=== PATIENT | female | born 1970 | race Caucasian/White ===

== ENCOUNTER 2017-07-10 16:53 | Emergency (ER) | payer MEDICARE, MEDICAID ==
[~2017-07-10] VITALS: Ht 149.9 cm; Wt 47.7 kg
[~2017-07-10 16:53] MED LIST: ACET5SOL2 PO; CYCL-394 PO; DIAZ5TAB PO; HYDR-565 PO; IBUP-2284 PO; MELO-82 PO; NAPR-56 PO; claritan
[2017-07-10 17:53] LABS: BASOPHILS % (AUTO) 0.4 % (0-1); EOSINOPHILS # (AUTO) 0.1 X10'3 (0-0.9); HEMATOCRIT 38.7 % (35.0-45.0); HEMOGLOBIN 13.4 g/dl (12.0-16.0); LYMPHOCYTES # (AUTO) 1.2 X10'3 (1.1-4.8); LYMPHOCYTES % (AUTO) 32.3 % (21-51); MEAN CORPUSCULAR HEMOGLOBIN 30.7 PG (27.0-31.0); MEAN CORPUSCULAR HGB CONC 34.7 % (33.0-36.5); MEAN CORPUSCULAR VOLUME 88.6 FL (78-98); MEAN PLATELET VOLUME 7.7 FL (7.4-10.4); MONOCYTES # (AUTO) 0.4 X10'3 (0-0.9); MONOCYTES % (AUTO) 10.4 % (2-12); NEUTROPHILS % (AUTO) 54.9 % (42-75); PLATELET COUNT 225 X10'3 (140-440); RED BLOOD COUNT 4.37 X10'6 (4.20-5.60); RED CELL DISTRIBUTION WIDTH 12.6 % (11.5-14.5); WHITE BLOOD COUNT 3.7 X10'3 (4.5-11.0)
[2017-07-10 18:02] LABS: INR 0.9 INR; PARTIAL THROMBOPLASTIN TIME 26 SECONDS (22-32); PROTHROMBIN TIME 9.8 SECONDS (9.0-12.0)
[2017-07-10 18:10] LABS: ALANINE AMINOTRANSFERASE 35 U/L (12-78); ALBUMIN/GLOBULIN RATIO 1.1 (1.1-1.5); ALKALINE PHOSPHATASE 49 IU/L (46-116); ANION GAP 10 (8-16); ASPARTATE AMINO TRANSFERASE 22 U/L (10-37); BILIRUBIN,TOTAL 0.4 MG/DL (0.1-1.0); BLOOD UREA NITROGEN 19 MG/DL (7-18); BUN/CREATININE RATIO 24.7 (6.6-38.0); CALCIUM 8.8 MG/DL (8.5-10.1); CHLORIDE 104 MMOL/L (99-107); CREATININE 0.77 MG/DL (0.40-0.90); GLUCOSE 81 MG/DL (70-104); POTASSIUM 4.1 MMOL/L (3.5-5.1); SODIUM 139 MMOL/L (135-145); TOTAL CARBON DIOXIDE 25.3 MMOL/L (24-32); TOTAL PROTEIN 7.5 G/DL (6.4-8.2); TROPONIN I < 0.04 NG/ML (0.0-0.05); eGFR 81 ML/MIN
[2017-07-10] MEDS ORDERED: ketorolac trometh inj. 60 MG/2 ML VIAL IM ONE (19:05)
[2017-07-10] MEDS ORDERED: triamcinolone acetonide 40mg/ml inj IM ONE (19:05)
[2017-07-10 19:21] VITALS: BP 113/93
== END 2017-07-10 19:22 | disposition home or self-care (01) ==
LOC: ER 16:55
DX: M54.10 Radiculopathy, site unspecified (principal); M54.9 Dorsalgia, unspecified; G89.29 Other chronic pain; F17.200 Nicotine dependence, unspecified, uncomplicated; F12.10 Cannabis abuse, uncomplicated; F15.10 Other stimulant abuse, uncomplicated; Z56.0 Unemployment, unspecified; Z79.899 Other long term (current) drug therapy
CPT/HCPCS: 36415; 70450; 71045; 72100; 80053; 84484; 85025; 85610; 85730; 93005; 96372; 99285; J1885; J3301

== ENCOUNTER 2018-01-16 05:36 | Inpatient (IN) | payer MEDICARE, MEDICAID ==
[~2018-01-16] VITALS: Ht 149.9 cm; Wt 44.1 kg
[2018-01-16] VITALS (17 sets, daily range): BP systolic 78–118; BP diastolic 42–68
[~2018-01-16 05:36] MED LIST changes: -IBUP-2284 PO; +IBUP100O20 PO
[2018-01-16] MEDS ORDERED: HYDROcodone/acetaminophen 5mg/325mg tablet PO ONE (05:50)
[2018-01-16] MEDS ORDERED: normal saline 1000ML IV soln IV ONE (06:05)
[2018-01-16] MEDS ORDERED: fentaNYL/PF 50MCG/1 ML 2ML syringe IV ONE (06:05)
[2018-01-16 06:13] LABS: BASOPHILS % (AUTO) 0 % (0-1); EOSINOPHILS % (AUTO) 0 % (0-6); HEMATOCRIT 34.8 % (35.0-45.0); HEMOGLOBIN 11.9 g/dl (12.0-16.0); LYMPHOCYTES # (AUTO) 0.4 X10'3 (1.1-4.8); LYMPHOCYTES % (AUTO) 4.2 % (21-51); MEAN CORPUSCULAR HEMOGLOBIN 30.6 PG (27.0-31.0); MEAN CORPUSCULAR HGB CONC 34.4 % (33.0-36.5); MEAN CORPUSCULAR VOLUME 88.9 FL (78-98); MEAN PLATELET VOLUME 8.4 FL (7.4-10.4); MONOCYTES # (AUTO) 1.4 X10'3 (0-0.9); NEUTROPHILS # (AUTO) 8.1 X10'3 (1.8-7.7); NEUTROPHILS % (AUTO) 81.8 % (42-75); PLATELET COUNT 163 X10'3 (140-440); RED BLOOD COUNT 3.91 X10'6 (4.20-5.60); RED CELL DISTRIBUTION WIDTH 13.4 % (11.5-14.5); WHITE BLOOD COUNT 9.9 X10'3 (4.5-11.0)
[2018-01-16] MEDS ORDERED: ondansetron/PF 4mg/2ml inj IV ONE (06:20)
[2018-01-16 06:24] LABS: INR 1.1 INR; PARTIAL THROMBOPLASTIN TIME 32 SECONDS (22-32); PROTHROMBIN TIME 10.9 SECONDS (9.0-12.0)
[2018-01-16 06:37] LABS: ALANINE AMINOTRANSFERASE 20 U/L (12-78); ALBUMIN/GLOBULIN RATIO 0.8 (1.1-1.5); ALKALINE PHOSPHATASE 70 IU/L (46-116); ANION GAP 10 (8-16); ASPARTATE AMINO TRANSFERASE 14 U/L (10-37); BILIRUBIN,TOTAL 0.3 MG/DL (0.1-1.0); BLOOD UREA NITROGEN 22 MG/DL (7-18); BUN/CREATININE RATIO 19.3 (6.6-38.0); CALCIUM 9.7 MG/DL (8.5-10.1); CHLORIDE 99 MMOL/L (99-107); CREATININE 1.14 MG/DL (0.40-0.90); GLUCOSE 111 MG/DL (70-104); LIPASE 104 U/L (73-393); POTASSIUM 4.3 MMOL/L (3.5-5.1); SODIUM 132 MMOL/L (135-145); TOTAL CARBON DIOXIDE 22.9 MMOL/L (24-32); eGFR 52 ML/MIN
[2018-01-16 06:55] LABS: CLARITY,URINE CLEAR (Clear); COLOR,URINE YELLOW (Yellow); GLUCOSE, URINE NEGATIVE (Neg); KETONES,URINE NEGATIVE (Neg); LEUKOCYTE ESTERASE ,URINE MODERATE (Neg); NITRITES, URINE NEGATIVE (Neg); OCCULT BLOOD,URINE MODERATE (Neg); PROTEIN,URINE 100 mg/dl (Neg); URINE HCG NEGATIVE (NEG); UROBILINOGEN,URINE 0.2 E.U/dL (0.2-1.0)
[2018-01-16 06:56] LABS: UA COLLECTION TYPE CLN CATCH MIDSTREAM
[2018-01-16 07:02] LABS: BACTERIA,URINE FEW /HPF (Neg); MUCUS STRANDS NONE SEEN /LPF (Neg); SQUAMOUS EPITHELIAL CELL,UR NONE SEEN /LPF (FEW); WBC,URINE 50-100 /HPF (0-4)
[2018-01-16 07:06] LABS: URINE AMPHETAMINE SCREEN POSITIVE (Neg); URINE BARBITUATE SCREEN NEGATIVE (Neg); URINE BENZODIAZEPINES SCREEN NEGATIVE (Neg); URINE CANNABINOID SCREEN POSITIVE (Neg); URINE COCAINE SCREEN NEGATIVE (Neg); URINE METHADONE SCREEN NEGATIVE (Neg); URINE OPIATE SCREEN NEGATIVE (Neg); URINE PHENCYCLIDINE SCREEN NEGATIVE (Neg)
[2018-01-16] MEDS ORDERED: CefTRIAXone 2gm/D5W 50ml 50 ML IV ONE (07:55)
[2018-01-16] MEDS ORDERED: morphine 4 MG/ML inj SYRINge IV ONE (08:30)
[2018-01-16] MEDS ORDERED: ketorolac tromethamine 15mg/ml inj. IV ONE (08:35)
[2018-01-16] MEDS ORDERED: CIPR-259 PO (08:41)
[2018-01-16] MEDS ORDERED: HYDROcodone/acetaminophen 5mg/325mg tablet PO PRN (09:30)
[2018-01-16] MEDS ORDERED: acetaminophen 325mg tablet PO PRN (09:30)
[2018-01-16] MEDS ORDERED: magnesium Cl slow-release 64mg tablet PO PRN (09:30)
[2018-01-16] MEDS ORDERED: ondansetron/PF 4mg/2ml inj IV PRN ×2 (09:30→19:05)
[2018-01-16] MEDS ORDERED: potassium Cl 20 mEq SR tablet PO PRN ×2 (09:30)
[2018-01-16] MEDS ORDERED: magnesium 1gm/100ml D5W IVPB 100 ML IV PRN (09:30)
[2018-01-16] MEDS ORDERED: morphine 2 MG/ML inj. syringe IV PRN (09:30)
[2018-01-16] MEDS ORDERED: mag hydrox/Alum hydrox/simeth 30ml oral suspension PO PRN (09:30)
[2018-01-16] MEDS ORDERED: magnesium 4gm in 100ml NS 100 ML IV PRN (09:30)
[2018-01-16] MEDS ORDERED: docusate sod 100mg capsule PO PRN (09:30)
[2018-01-16] MEDS ORDERED: potassium Cl 40MEQ/NS 500ml 500 ML IV PRN ×2 (09:30)
[2018-01-16] MEDS: pantoprazole 40mg Tablet.DR PO SCH (09:50)
[2018-01-16] MEDS ORDERED: NO HOME MEDS (10:25)
[2018-01-16] MEDS: normal saline 1000ml 1,000 ML IV SCH ×3 (11:32→21:01)
[2018-01-16] MEDS ORDERED: iohexol 300 MG/1 ML 50ml polymer ONE (18:37)
[2018-01-16] MEDS ORDERED: sevoflurane 250ml liquid IH ONE (18:55)
[2018-01-16] MEDS ORDERED: dexamethasone sod phosphate 10mg/ml inj ONE (18:55)
[2018-01-16] MEDS ORDERED: propofol 10mg/ml 20ml vial IV ONE (18:55)
[2018-01-16] MEDS ORDERED: ondansetron/PF 4mg/2ml inj ONE (18:55)
[2018-01-16] MEDS ORDERED: ringers solution, lacted 1,000 ML IV SCH (19:01)
[2018-01-16] MEDS ORDERED: midazolam 2 mg/2 ml injection ONE (19:04)
[2018-01-16] MEDS ORDERED: fentaNYL/PF 50MCG/1 ML 2ML syringe ONE (19:04)
[2018-01-16] MEDS ORDERED: morphine 4 MG/ML inj SYRINge IV PRN ×2 (19:05)
[2018-01-16] MEDS ORDERED: labetalol 20mg/4ml (5mg/ml) syringe IV PRN (19:05)
[2018-01-16] MEDS ORDERED: fentaNYL/PF 50MCG/1 ML 2ML syringe IV PRN ×2 (19:05)
[2018-01-16] MEDS ORDERED: hydrALAZINE 20mg/ml inj. IV PRN (19:05)
[2018-01-16] MEDS ORDERED: ceFAZolin 1000mg inj ONE (19:14)
[2018-01-16] MEDS ORDERED: meperidine/PF 50mg/ml syringe ONE (19:30)
[2018-01-16] MEDS ORDERED: albuterol 2.5 MG/3 ML nebule NEB ONE (20:30)
[2018-01-16] MEDS ORDERED: temazepam 15mg capsule PO PRN (21:00)
[2018-01-16] MEDS: heparin, porcine 5000 units/ml vial SQ SCH (22:07)
[2018-01-17] VITALS: BP 101/52
[2018-01-17 01:00] VITALS: BP 99/62
[2018-01-17] MEDS: normal saline 1000ml 1,000 ML IV SCH ×3 (04:38→22:37)
[2018-01-17 05:21] LABS: BASOPHILS % (AUTO) 0.1 % (0-1); EOSINOPHILS % (AUTO) 0.1 % (0-6); HEMATOCRIT 32.7 % (35.0-45.0); HEMOGLOBIN 11.3 g/dl (12.0-16.0); LYMPHOCYTES # (AUTO) 0.2 X10'3 (1.1-4.8); LYMPHOCYTES % (AUTO) 14.3 % (21-51); MEAN CORPUSCULAR HEMOGLOBIN 30.5 PG (27.0-31.0); MEAN CORPUSCULAR HGB CONC 34.4 % (33.0-36.5); MEAN CORPUSCULAR VOLUME 88.5 FL (78-98); MEAN PLATELET VOLUME 9.3 FL (7.4-10.4); MONOCYTES # (AUTO) 0.3 X10'3 (0-0.9); MONOCYTES % (AUTO) 16.4 % (2-12); NEUTROPHILS # (AUTO) 1.2 X10'3 (1.8-7.7); NEUTROPHILS % (AUTO) 69.1 % (42-75); PLATELET COUNT 115 X10'3 (140-440); RED BLOOD COUNT 3.69 X10'6 (4.20-5.60); RED CELL DISTRIBUTION WIDTH 13.3 % (11.5-14.5); WHITE BLOOD COUNT 1.7 X10'3 (4.5-11.0)
[2018-01-17 05:29] LABS: ALANINE AMINOTRANSFERASE 14 U/L (12-78); ALBUMIN 1.9 G/DL (3.4-5.0); ALBUMIN/GLOBULIN RATIO 0.5 (1.1-1.5); ALKALINE PHOSPHATASE 57 IU/L (46-116); ANION GAP 9 (8-16); ASPARTATE AMINO TRANSFERASE 9 U/L (10-37); BILIRUBIN,TOTAL 0.2 MG/DL (0.1-1.0); BLOOD UREA NITROGEN 18 MG/DL (7-18); BUN/CREATININE RATIO 22.2 (6.6-38.0); CALCIUM 7.5 MG/DL (8.5-10.1); CHLORIDE 107 MMOL/L (99-107); CREATININE 0.81 MG/DL (0.40-0.90); GLUCOSE 120 MG/DL (70-104); MAGNESIUM 1.7 MG/DL (1.5-2.4); POTASSIUM 3.7 MMOL/L (3.5-5.1); SODIUM 135 MMOL/L (135-145); TOTAL CARBON DIOXIDE 18.7 MMOL/L (24-32); TOTAL PROTEIN 5.6 G/DL (6.4-8.2); eGFR 76 ML/MIN
[2018-01-17 07:24] LABS: PLATELET ESTIMATE DECREASED; TOTAL CELLS COUNTED 100
[2018-01-17 08:00] VITALS: BP 93/62
[2018-01-17] MEDS: K and/or MAG REPLACEMENT MC SCH (08:00)
[2018-01-17] MEDS: HYDROcodone/acetaminophen 10/325mg tab PO PRN ×3 (08:18→19:17)
[2018-01-17] MEDS: pantoprazole 40mg Tablet.DR PO SCH (08:40)
[2018-01-17] MEDS: CefTRIAXone 2gm/D5W 50ml 50 ML IV SCH (08:41)
[2018-01-17] MEDS: heparin, porcine 5000 units/ml vial SQ SCH ×2 (08:42→19:19)
[2018-01-17 11:00] VITALS: BP 96/64
[2018-01-17] MEDS ORDERED: levoFLOXACIN-Levaquin 750MG/D5 150 ML IV STA (13:08)
[2018-01-17 18:00] VITALS: BP 111/71
[2018-01-17] MEDS: lactobacillus rhamnosus 10,000 MMU CELLS/CAPSULE PO SCH (19:15)
[2018-01-18] VITALS: BP 115/72
[2018-01-18] MEDS: HYDROcodone/acetaminophen 10/325mg tab PO PRN (00:46)
[2018-01-18 05:16] LABS: HEMATOCRIT 30.6 % (35.0-45.0); HEMOGLOBIN 10.4 g/dl (12.0-16.0); MEAN CORPUSCULAR VOLUME 88.1 FL (78-98); MEAN PLATELET VOLUME 8.4 FL (7.4-10.4); PLATELET COUNT 133 X10'3 (140-440); RED BLOOD COUNT 3.47 X10'6 (4.20-5.60); RED CELL DISTRIBUTION WIDTH 13.4 % (11.5-14.5); WHITE BLOOD COUNT 1.6 X10'3 (4.5-11.0)
[2018-01-18 05:30] LABS: ALANINE AMINOTRANSFERASE 11 U/L (12-78); ALBUMIN 1.9 G/DL (3.4-5.0); ALBUMIN/GLOBULIN RATIO 0.5 (1.1-1.5); ALKALINE PHOSPHATASE 47 IU/L (46-116); ANION GAP 9 (8-16); ASPARTATE AMINO TRANSFERASE 8 U/L (10-37); BILIRUBIN,TOTAL 0.1 MG/DL (0.1-1.0); BLOOD UREA NITROGEN 14 MG/DL (7-18); BUN/CREATININE RATIO 15.6 (6.6-38.0); CALCIUM 7.7 MG/DL (8.5-10.1); CHLORIDE 108 MMOL/L (99-107); GLUCOSE 95 MG/DL (70-104); MAGNESIUM 1.8 MG/DL (1.5-2.4); POTASSIUM 3.6 MMOL/L (3.5-5.1); SODIUM 138 MMOL/L (135-145); TOTAL CARBON DIOXIDE 21.2 MMOL/L (24-32); TOTAL PROTEIN 5.4 G/DL (6.4-8.2); eGFR 68 ML/MIN
[2018-01-18] MEDS: normal saline 1000ml 1,000 ML IV SCH (05:37)
[2018-01-18 07:10] VITALS: BP 117/61
[2018-01-18 07:24] LABS: TOTAL CELLS COUNTED 100
[2018-01-18 07:29] LABS: PLATELET ESTIMATE DECREASED; POLYCHROMASIA FEW
[2018-01-18 07:31] LABS: BURR CELLS 1+; TOXIC GRANULATION 1+
[2018-01-18] MEDS: K and/or MAG REPLACEMENT MC SCH (08:00)
[2018-01-18] MEDS: pantoprazole 40mg Tablet.DR PO SCH (09:32)
[2018-01-18] MEDS: CefTRIAXone 2gm/D5W 50ml 50 ML IV SCH (09:34)
[2018-01-18] MEDS: acetaminophen 325mg tablet PO PRN ×2 (09:34→21:35)
[2018-01-18] MEDS: lactobacillus rhamnosus 10,000 MMU CELLS/CAPSULE PO SCH ×2 (09:34→21:33)
[2018-01-18] MEDS: heparin, porcine 5000 units/ml vial SQ SCH ×2 (09:38→21:36)
[2018-01-18] MEDS: levoFLOXACIN-Levaquin 750MG/D5 150 ML IV SCH (10:46)
[2018-01-18 11:45] VITALS: BP 101/61
[2018-01-18] MEDS ORDERED: magnesium hydroxide 30ml (MOM) UD suspension PO PRN (16:50)
[2018-01-18 18:00] VITALS: BP 100/53
[2018-01-18] MEDS: busPIRone 5mg tablet PO SCH (21:33)
[2018-01-18] MEDS: docusate sod 100mg capsule PO SCH (21:33)
[2018-01-18] MEDS: Melatonin 3mg tablet PO SCH (21:34)
[2018-01-19] VITALS: BP 94/47
[2018-01-19 05:53] LABS: HEMATOCRIT 31.2 % (35.0-45.0); HEMOGLOBIN 10.7 g/dl (12.0-16.0); MEAN CORPUSCULAR HEMOGLOBIN 30.4 PG (27.0-31.0); MEAN CORPUSCULAR HGB CONC 34.4 % (33.0-36.5); MEAN CORPUSCULAR VOLUME 88.5 FL (78-98); MEAN PLATELET VOLUME 8.6 FL (7.4-10.4); PLATELET COUNT 146 X10'3 (140-440); RED BLOOD COUNT 3.52 X10'6 (4.20-5.60); RED CELL DISTRIBUTION WIDTH 13.7 % (11.5-14.5); WHITE BLOOD COUNT 1.9 X10'3 (4.5-11.0)
[2018-01-19 06:00] LABS: ALANINE AMINOTRANSFERASE 14 U/L (12-78); ALBUMIN/GLOBULIN RATIO 0.5 (1.1-1.5); ALKALINE PHOSPHATASE 51 IU/L (46-116); ANION GAP 8 (8-16); ASPARTATE AMINO TRANSFERASE 15 U/L (10-37); BILIRUBIN,TOTAL 0.1 MG/DL (0.1-1.0); BLOOD UREA NITROGEN 8 MG/DL (7-18); CALCIUM 8.3 MG/DL (8.5-10.1); CHLORIDE 104 MMOL/L (99-107); CREATININE 0.73 MG/DL (0.40-0.90); GLUCOSE 123 MG/DL (70-104); MAGNESIUM 1.6 MG/DL (1.5-2.4); POTASSIUM 3.4 MMOL/L (3.5-5.1); SODIUM 136 MMOL/L (135-145); TOTAL PROTEIN 5.7 G/DL (6.4-8.2); eGFR 86 ML/MIN
[2018-01-19] MEDS: K and/or MAG REPLACEMENT MC SCH (08:00)
[2018-01-19 08:03] VITALS: BP 109/61
[2018-01-19 08:45] LABS: PLATELET ESTIMATE NORMAL; TOTAL CELLS COUNTED 100
[2018-01-19] MEDS: pantoprazole 40mg Tablet.DR PO SCH (09:49)
[2018-01-19] MEDS: lactobacillus rhamnosus 10,000 MMU CELLS/CAPSULE PO SCH ×2 (09:49→19:37)
[2018-01-19] MEDS: busPIRone 5mg tablet PO SCH ×3 (09:49→21:07)
[2018-01-19] MEDS: CefTRIAXone 2gm/D5W 50ml 50 ML IV SCH (09:49)
[2018-01-19] MEDS: heparin, porcine 5000 units/ml vial SQ SCH ×2 (09:50→19:37)
[2018-01-19] MEDS: docusate sod 100mg capsule PO SCH ×2 (09:50→19:37)
[2018-01-19] MEDS: levoFLOXACIN-Levaquin 750MG/D5 150 ML IV SCH (10:33)
[2018-01-19] MEDS ORDERED: magnesium 4gm in 100ml NS 100 ML IV PRN (10:40)
[2018-01-19] MEDS ORDERED: magnesium Cl slow-release 64mg tablet PO PRN (10:40)
[2018-01-19] MEDS ORDERED: potassium Cl 20 mEq SR tablet PO PRN (10:40)
[2018-01-19] MEDS ORDERED: potassium Cl 40MEQ/NS 500ml 500 ML IV PRN ×2 (10:40)
[2018-01-19] MEDS ORDERED: magnesium 1gm/100ml D5W IVPB 100 ML IV PRN (10:40)
[2018-01-19] MEDS: potassium Cl 20 mEq SR tablet PO PRN ×2 (11:12→19:37)
[2018-01-19] MEDS: nicotine 14mg patch - 24hr TD SCH (11:14)
[2018-01-19 11:52] VITALS: BP 101/54
[2018-01-19 18:00] VITALS: BP 99/63
[2018-01-19] MEDS: HYDROcodone/acetaminophen 10/325mg tab PO PRN (19:37)
[2018-01-19] MEDS: Melatonin 3mg tablet PO SCH (21:07)
[2018-01-20] VITALS: BP 111/59
[2018-01-20 05:17] LABS: HEMATOCRIT 31.5 % (35.0-45.0); HEMOGLOBIN 10.8 g/dl (12.0-16.0); MEAN CORPUSCULAR HEMOGLOBIN 30.2 PG (27.0-31.0); MEAN CORPUSCULAR HGB CONC 34.2 % (33.0-36.5); MEAN CORPUSCULAR VOLUME 88.3 FL (78-98); MEAN PLATELET VOLUME 8.6 FL (7.4-10.4); PLATELET COUNT 162 X10'3 (140-440); RED BLOOD COUNT 3.57 X10'6 (4.20-5.60); RED CELL DISTRIBUTION WIDTH 13.6 % (11.5-14.5)
[2018-01-20 05:38] LABS: ALANINE AMINOTRANSFERASE 56 U/L (12-78); ALBUMIN 2.1 G/DL (3.4-5.0); ALBUMIN/GLOBULIN RATIO 0.6 (1.1-1.5); ALKALINE PHOSPHATASE 57 IU/L (46-116); ANION GAP 7 (8-16); ASPARTATE AMINO TRANSFERASE 61 U/L (10-37); BILIRUBIN,TOTAL 0.1 MG/DL (0.1-1.0); BLOOD UREA NITROGEN 9 MG/DL (7-18); CALCIUM 8.2 MG/DL (8.5-10.1); CHLORIDE 104 MMOL/L (99-107); CREATININE 0.75 MG/DL (0.40-0.90); GLUCOSE 113 MG/DL (70-104); MAGNESIUM 1.7 MG/DL (1.5-2.4); SODIUM 137 MMOL/L (135-145); TOTAL CARBON DIOXIDE 25.7 MMOL/L (24-32); TOTAL PROTEIN 5.8 G/DL (6.4-8.2); eGFR 84 ML/MIN
[2018-01-20 06:28] LABS: TOTAL CELLS COUNTED 100
[2018-01-20 06:29] LABS: PLATELET ESTIMATE NORMAL
[2018-01-20 08:00] VITALS: BP 120/67
[2018-01-20] MEDS: K and/or MAG REPLACEMENT MC SCH (08:00)
[2018-01-20] MEDS: levoFLOXACIN-Levaquin 750MG/D5 150 ML IV SCH (09:13)
[2018-01-20] MEDS: CefTRIAXone 2gm/D5W 50ml 50 ML IV SCH (09:13)
[2018-01-20] MEDS: pantoprazole 40mg Tablet.DR PO SCH (09:13)
[2018-01-20] MEDS: docusate sod 100mg capsule PO SCH (09:13)
[2018-01-20] MEDS: lactobacillus rhamnosus 10,000 MMU CELLS/CAPSULE PO SCH (09:13)
[2018-01-20] MEDS: busPIRone 5mg tablet PO SCH ×2 (09:14→13:00)
[2018-01-20] MEDS: heparin, porcine 5000 units/ml vial SQ SCH (09:14)
[2018-01-20] MEDS: nicotine 14mg patch - 24hr TD SCH (09:14)
[2018-01-20 11:26] VITALS: BP 115/59
[2018-01-20] MEDS ORDERED: BUSP5TAB26 PO (11:36)
[2018-01-20] MEDS ORDERED: MELA10TA3 PO (11:36)
[2018-01-20] MEDS ORDERED: LEVO500T2 PO (11:36)
[2018-01-20] MEDS ORDERED: NICO-631 TD (11:36)
== END 2018-01-20 14:15 | disposition home or self-care (01) | DRG 872 ==
LOC: ER 05:36 → ED HOLD 09:29 → SUR 3N 10:51
PROVIDERS: ADMIT Internal Medicine; ATTEND Family Medicine
PROC: 0T778DZ Dilation of Left Ureter with Intraluminal Device, Via Natural or Artificial Opening Endoscopic (ICD-10-PCS; 2018-01-16)
PROC: BT1F1ZZ Fluoroscopy of Left Kidney, Ureter and Bladder using Low Osmolar Contrast (ICD-10-PCS; principal; 2018-01-16 19:00)
DX: A41.51 Sepsis due to Escherichia coli [E. coli] (principal); E87.1 Hypo-osmolality and hyponatremia; N13.6 Pyonephrosis; D64.9 Anemia, unspecified; F12.10 Cannabis abuse, uncomplicated; F15.10 Other stimulant abuse, uncomplicated; F31.9 Bipolar disorder, unspecified; F41.1 Generalized anxiety disorder; G47.00 Insomnia, unspecified; N81.10 Cystocele, unspecified; G89.29 Other chronic pain; F17.210 Nicotine dependence, cigarettes, uncomplicated; Z71.51 Drug abuse counseling and surveillance of drug abuser
CPT/HCPCS: 36415; 71045; 74176; 74420; 76000; 80053; 80305; 81001; 81025; 83605; 83690; 83735; 84145; 85025; 85610; 85730; 87040; 87070; 87077; 87088; 87186; 93005; 93306; 94640; 94760; A4402; C1758; C1769; C2617; J0690; J0696; J1100; J1644; J1885; J1956; J2175; J2250; J2270; J2405; J2704; J3010; J7030; J7120; Q9967

== ENCOUNTER 2018-06-24 14:43 | Emergency (ER) | payer MEDICARE, MEDICAID ==
[~2018-06-24 14:43] MED LIST changes: -ACET5SOL2 PO; +BUSP5TAB26 PO; -CYCL-394 PO; -DIAZ5TAB PO; -HYDR-565 PO; -IBUP100O20 PO; +MELA10TA3 PO; -MELO-82 PO; -NAPR-56 PO; +NICO-631 TD; -claritan
--- NOTE | 2018-06-24 15:01 | NUR ---
Not in lobby at 1500
== END 2018-06-24 15:46 | disposition left against medical advice (07) ==
LOC: ER 14:43
DX: M79.646 Pain in unspecified finger(s) (principal); Z53.21 Procedure and treatment not carried out due to patient leaving prior to being seen by health care provider

== ENCOUNTER 2018-11-13 20:37 | Emergency (ER) | payer MEDICARE, MEDICAID ==
[~2018-11-13] VITALS: Ht 149.9 cm; Wt 45.3 kg
[2018-11-13 21:03] VITALS: BP 118/52
[2018-11-13 21:45] LABS: BASOPHILS % (AUTO) 0.5 % (0-1); EOSINOPHILS # (AUTO) 0.1 X10'3 (0-0.9); EOSINOPHILS % (AUTO) 1.7 % (0-6); HEMOGLOBIN 13.5 g/dl (12.0-16.0); LYMPHOCYTES # (AUTO) 0.5 X10'3 (1.1-4.8); LYMPHOCYTES % (AUTO) 14.6 % (21-51); MEAN CORPUSCULAR HEMOGLOBIN 30.6 PG (27.0-31.0); MEAN CORPUSCULAR HGB CONC 33.6 g/dL (33.0-36.5); MEAN CORPUSCULAR VOLUME 90.9 FL (78-98); MONOCYTES # (AUTO) 0.6 X10'3 (0-0.9); MONOCYTES % (AUTO) 17.1 % (2-12); NEUTROPHILS # (AUTO) 2.3 X10'3 (1.8-7.7); NEUTROPHILS % (AUTO) 66.1 % (42-75); PLATELET COUNT 224 X10'3 (140-440); RED CELL DISTRIBUTION WIDTH 12.5 % (11.5-14.5); WHITE BLOOD COUNT 3.5 X10'3 (4.5-11.0)
[2018-11-13 21:50] LABS: ANION GAP 9 (8-16); CHLORIDE 102 MMOL/L (99-107); GLUCOSE 85 MG/DL (70-104); POTASSIUM 4.1 MMOL/L (3.5-5.1); SODIUM 135 MMOL/L (135-145); TOTAL CARBON DIOXIDE 23.9 MMOL/L (24-32)
[2018-11-13 21:51] LABS: ALANINE AMINOTRANSFERASE 25 U/L (12-78); ALBUMIN 3.5 G/DL (3.4-5.0); ALBUMIN/GLOBULIN RATIO 0.9 (1.1-1.5); ALKALINE PHOSPHATASE 63 IU/L (46-116); ASPARTATE AMINO TRANSFERASE 19 U/L (10-37); BILIRUBIN,TOTAL 0.3 MG/DL (0.1-1.0); BLOOD UREA NITROGEN 13 MG/DL (7-18); BUN/CREATININE RATIO 14.1 (6.6-38.0); CALCIUM 8.4 MG/DL (8.5-10.1); CREATININE 0.92 MG/DL (0.40-0.90); TOTAL PROTEIN 7.5 G/DL (6.4-8.2); eGFR 66 ML/MIN
[2018-11-13 22:12] LABS: PLATELET ESTIMATE NORMAL; TOTAL CELLS COUNTED 100; TOXIC VACUOLATION 1+
[2018-11-13 22:13] LABS: TOXIC GRANULATION 1+
== END 2018-11-13 23:25 | disposition left against medical advice (07) ==
LOC: ER 20:39
DX: N23 Unspecified renal colic (principal); Z53.21 Procedure and treatment not carried out due to patient leaving prior to being seen by health care provider
CPT/HCPCS: 36415; 80053; 85025; 85610

== ENCOUNTER 2019-03-10 11:40 | Emergency (ER) | payer MEDICARE, MEDICAID ==
[~2019-03-10] VITALS: Ht 149.9 cm; Wt 47.7 kg
[2019-03-10 11:56] VITALS: BP 151/67
[2019-03-10] MEDS ORDERED: ketorolac trometh inj. 60 MG/2 ML VIAL IM ONE (13:30)
[2019-03-10] MEDS ORDERED: SULF1TAB49 PO (14:12)
[2019-03-10] MEDS ORDERED: FLUC150T66 PO (14:12)
[2019-03-10] MEDS ORDERED: CEPH-572 PO (14:12)
[2019-03-12 11:10] LABS: RPR Reactive (Non Reactive)
== END 2019-03-10 14:34 | disposition home or self-care (01) ==
LOC: ER 11:41
DX: B37.3 Candidiasis of vulva and vagina (principal); L73.9 Follicular disorder, unspecified; G89.29 Other chronic pain; F12.90 Cannabis use, unspecified, uncomplicated; F15.90 Other stimulant use, unspecified, uncomplicated; F10.99 Alcohol use, unspecified with unspecified alcohol-induced disorder; Z98.890 Other specified postprocedural states; Z56.0 Unemployment, unspecified; Z79.899 Other long term (current) drug therapy; Y90.9 Presence of alcohol in blood, level not specified
CPT/HCPCS: 36415; 86592; 87210; 87491; 87591; 96372; 99283; J1885; Q0112

== ENCOUNTER 2019-03-12 21:51 | Emergency (ER) | payer MEDICARE, MEDICAID ==
[~2019-03-12] VITALS: Ht 149.9 cm; Wt 47.0 kg
[~2019-03-12 21:51] MED LIST changes: +CEPH-572 PO; +FLUC150T66 PO; +SULF1TAB49 PO
[2019-03-12] MEDS ORDERED: penicillin G benzathine 1.2 million unit/2ml syringe IM ONE (22:20)
[2019-03-12 22:22] LABS: EOSINOPHILS % (AUTO) 0.1 % (0-6); HEMATOCRIT 33.2 % (35.0-45.0); HEMOGLOBIN 11.5 g/dl (12.0-16.0); LYMPHOCYTES # (AUTO) 0.4 X10'3 (1.1-4.8); LYMPHOCYTES % (AUTO) 37.4 % (21-51); MEAN CORPUSCULAR HEMOGLOBIN 30.7 PG (27.0-31.0); MEAN CORPUSCULAR HGB CONC 34.6 g/dL (33.0-36.5); MEAN CORPUSCULAR VOLUME 88.6 FL (78-98); MEAN PLATELET VOLUME 8.3 FL (7.4-10.4); MONOCYTES # (AUTO) 0.2 X10'3 (0-0.9); MONOCYTES % (AUTO) 25.7 % (2-12); NEUTROPHILS # (AUTO) 0.3 X10'3 (1.8-7.7); NEUTROPHILS % (AUTO) 35.8 % (42-75); PLATELET COUNT 161 X10'3 (140-440); RED BLOOD COUNT 3.75 X10'6 (4.20-5.60); RED CELL DISTRIBUTION WIDTH 13.9 % (11.5-14.5)
[2019-03-12] MEDS ORDERED: fluconazole 100mg tablet PO ONE (22:25)
[2019-03-12 22:28] LABS: WHITE BLOOD COUNT 0.9 X10'3 (4.5-11.0)
[2019-03-12] MEDS ORDERED: normal saline 1000ML IV soln IV ONE (22:30)
[2019-03-12 22:36] LABS: ALANINE AMINOTRANSFERASE 514 U/L (12-78); ALBUMIN 3.1 G/DL (3.4-5.0); ALBUMIN/GLOBULIN RATIO 0.8 (1.1-1.5); ALKALINE PHOSPHATASE 242 IU/L (46-116); ANION GAP 8 (8-16); ASPARTATE AMINO TRANSFERASE 324 U/L (10-37); BILIRUBIN,TOTAL 0.3 MG/DL (0.1-1.0); BLOOD UREA NITROGEN 17 MG/DL (7-18); BUN/CREATININE RATIO 19.5 (6.6-38.0); CALCIUM 8.6 MG/DL (8.5-10.1); CHLORIDE 104 MMOL/L (99-107); CREATININE 0.87 MG/DL (0.40-0.90); GLUCOSE 99 MG/DL (70-104); LIPASE 147 U/L (73-393); SODIUM 137 MMOL/L (135-145); TOTAL CARBON DIOXIDE 25.3 MMOL/L (24-32); TOTAL PROTEIN 7.1 G/DL (6.4-8.2); eGFR 70 ML/MIN
[2019-03-12 23:01] LABS: URINE HCG NEGATIVE (NEG)
[2019-03-12 23:05] LABS: CLARITY,URINE SLIGHTLY CLOUDY (Clear); COLOR,URINE YELLOW (Yellow); GLUCOSE, URINE NEGATIVE (Neg); KETONES,URINE NEGATIVE (Neg); LEUKOCYTE ESTERASE ,URINE NEGATIVE (Neg); NITRITES, URINE NEGATIVE (Neg); OCCULT BLOOD,URINE NEGATIVE (Neg); PROTEIN,URINE NEGATIVE (Neg)
[2019-03-12 23:08] LABS: UA COLLECTION TYPE CLN CATCH MIDSTREAM
[2019-03-12 23:18] LABS: HIV ANTIBODY 1&2 RAPID NON-REACTIVE (Neg)
[2019-03-12 23:21] LABS: BACTERIA,URINE FEW /HPF (Neg); RBC,URINE 0-2 /HPF (0-2); SQUAMOUS EPITHELIAL CELL,UR MODERATE /LPF (FEW)
[2019-03-13 00:22] VITALS: BP 106/70
[2019-03-14 08:35] LABS: HBSAG SCREEN Negative (Negative); HEP A AB, IGM Negative (Negative); HEP B CORE AB, IGM Negative (Negative); HEPATITIS C ANTIBODY <0.1 s/co ratio (0.0-0.9)
== END 2019-03-13 00:25 | disposition home or self-care (01) ==
LOC: ER 21:52
DX: A53.9 Syphilis, unspecified (principal); N76.0 Acute vaginitis; D70.9 Neutropenia, unspecified; R74.0 Nonspecific elevation of levels of transaminase and lactic acid dehydrogenase [LDH]; M54.9 Dorsalgia, unspecified; F15.90 Other stimulant use, unspecified, uncomplicated; F12.90 Cannabis use, unspecified, uncomplicated; G89.29 Other chronic pain; F10.99 Alcohol use, unspecified with unspecified alcohol-induced disorder; Z56.0 Unemployment, unspecified; Z98.890 Other specified postprocedural states; Z79.899 Other long term (current) drug therapy; Y90.9 Presence of alcohol in blood, level not specified
CPT/HCPCS: 36415; 80053; 80074; 81001; 81025; 83605; 83690; 85025; 86703; 87040; 87088; 96372; 99283; J0561; J7030; 96361

== ENCOUNTER 2022-09-19 01:14 | Emergency (ER) | payer MEDICARE, MEDICAID ==
[~2022-09-19] VITALS: Ht 149.9 cm; Wt 50.0 kg
[~2022-09-19 01:14] MED LIST changes: -CEPH-572 PO; -FLUC150T66 PO; -SULF1TAB49 PO
[2022-09-19] MEDS ORDERED: LIDOcaine 1% W/epiNEPHrine 1:100,000 20ml vial IJ ONE (05:00)
[2022-09-19] MEDS ORDERED: ampicillin/sulbac 3gm/NS 100ml 100 ML IV SCH (05:25)
[2022-09-19] MEDS ORDERED: bacitracin 15gm ointment TP ONE (05:35)
[2022-09-19] MEDS ORDERED: AMOX-117 PO (05:50)
[2022-09-19 05:56] VITALS: BP 130/75
== END 2022-09-19 05:59 | disposition home or self-care (01) ==
LOC: ER 01:18
DX: L02.511 Cutaneous abscess of right hand (principal); F12.10 Cannabis abuse, uncomplicated; G89.29 Other chronic pain; M54.9 Dorsalgia, unspecified; Z59.00 Homelessness unspecified; Z79.899 Other long term (current) drug therapy
CPT/HCPCS: 10060; 96365; 99284; J0295; J3490; A6258; A6449

== ENCOUNTER 2022-11-13 21:11 | Emergency (ER) | payer MEDICARE, MEDICAID ==
[~2022-11-13] VITALS: Ht 149.9 cm; Wt 42.7 kg
[2022-11-13 21:17] VITALS: BP 106/47
[2022-11-13] MEDS ORDERED: normal saline 1000ml 1,000 ML IV ONE (21:35)
[2022-11-13] MEDS ORDERED: ondansetron/PF 4mg/2ml inj IV ONE (21:35)
[2022-11-13] MEDS ORDERED: morphine 4 MG/ML inj SYRINge IV ONE (21:35)
[2022-11-13 22:08] LABS: CLARITY,URINE SLIGHTLY CLOUDY (Clear); COLOR,URINE YELLOW (Yellow); GLUCOSE, URINE NEGATIVE (Neg); KETONES,URINE NEGATIVE (Neg); LEUKOCYTE ESTERASE ,URINE SMALL (Neg); NITRITES, URINE POSITIVE (Neg); OCCULT BLOOD,URINE SMALL (Neg); PH,URINE 6.5 (4.8-8.0); PROTEIN,URINE 30 mg/dl (Neg); URINE HCG NEGATIVE (NEG); UROBILINOGEN,URINE 0.2 E.U/dL (0.2-1.0)
[2022-11-13 22:20] LABS: UA COLLECTION TYPE CLN CATCH MIDSTREAM
[2022-11-13 22:22] LABS: WBC,URINE 20-30 /HPF (0-4)
[2022-11-13 22:23] LABS: BACTERIA,URINE 4+ /HPF (Neg); MUCUS STRANDS FEW /LPF (Neg); SQUAMOUS EPITHELIAL CELL,UR FEW /LPF (FEW)
[2022-11-13 22:24] LABS: TRANSITIONAL EPI CELLS,URINE FEW /HPF; WBC CLUMPS,URINE MODERATE /HPF (NEGATIVE)
[2022-11-13] MEDS ORDERED: CefTRIAXone/D5W-Rocephin 1gm 50 ML IV ONE (22:45)
[2022-11-13 23:01] LABS: ALANINE AMINOTRANSFERASE 24 U/L (12-78); ALBUMIN 3.5 G/DL (3.4-5.0); ALBUMIN/GLOBULIN RATIO 0.9 (1.1-1.5); ALKALINE PHOSPHATASE 56 IU/L (46-116); ANION GAP 12 (8-16); ASPARTATE AMINO TRANSFERASE 17 U/L (10-37); BILIRUBIN,TOTAL 0.5 MG/DL (0.1-1.0); BLOOD UREA NITROGEN 14 MG/DL (7-18); BUN/CREATININE RATIO 16.3 (10.0-20.0); CALCIUM 9.1 MG/DL (8.5-10.1); CHLORIDE 97 MMOL/L (99-107); CREATININE 0.86 MG/DL (0.40-0.90); GLUCOSE 100 MG/DL (70-104); LIPASE 56 U/L (73-393); POTASSIUM 4.2 MMOL/L (3.5-5.1); SODIUM 131 MMOL/L (135-145); TOTAL CARBON DIOXIDE 22.3 MMOL/L (24-32); TOTAL PROTEIN 7.6 G/DL (6.4-8.2); eGFR 70 ML/MIN
[2022-11-13] MEDS ORDERED: CEFD300C21 PO (23:09)
--- NOTE | 2022-11-13 23:54 | NUR ---
iv dc'd pt being discharged dressing applied
== END 2022-11-13 23:56 | disposition home or self-care (01) ==
LOC: ER 21:12
DX: N10 Acute pyelonephritis (principal); N39.0 Urinary tract infection, site not specified; F12.90 Cannabis use, unspecified, uncomplicated; F15.20 Other stimulant dependence, uncomplicated; Z56.0 Unemployment, unspecified
CPT/HCPCS: 36415; 80053; 81001; 81025; 83690; 87077; 87088; 87186; 96361; 96365; 96375; 99284; J0696; J2270; J2405; J7030; 85025

== ENCOUNTER 2023-06-27 20:47 | Emergency (ER) | payer BC, MEDICAID ==
[~2023-06-27] VITALS: Ht 149.9 cm; Wt 45.5 kg
[2023-06-27 20:57] VITALS: BP 118/67; PULSE 86; RESP 18; TEMP 98.3; O2SAT 100
[2023-06-27 22:21] LABS: BASOPHILS % (AUTO) 0.5 % (0-1); EOSINOPHILS % (AUTO) 0.7 % (0-6); HEMATOCRIT 35.6 % (35.0-45.0); HEMOGLOBIN 12.1 g/dl (12.0-16.0); LYMPHOCYTES # (AUTO) 1.1 X10'3 (1.1-4.8); LYMPHOCYTES % (AUTO) 29.6 % (21-51); MEAN CORPUSCULAR HEMOGLOBIN 30.6 PG (27.0-31.0); MEAN CORPUSCULAR HGB CONC 34.1 g/dL (33.0-36.5); MEAN CORPUSCULAR VOLUME 89.8 FL (78-98); MEAN PLATELET VOLUME 7.7 FL (7.4-10.4); MONOCYTES # (AUTO) 0.5 X10'3 (0-0.9); NEUTROPHILS # (AUTO) 2.2 X10'3 (1.8-7.7); NEUTROPHILS % (AUTO) 57.2 % (42-75); PLATELET COUNT 232 X10'3 (140-440); RED BLOOD COUNT 3.97 X10'6 (4.20-5.60); RED CELL DISTRIBUTION WIDTH 13.3 % (11.5-14.5); WHITE BLOOD COUNT 3.8 X10'3 (4.5-11.0)
[2023-06-27 22:27] LABS: APTT 24 SECONDS (22-32); PROTHROMBIN TIME 9.9 SECONDS (9.0-12.0)
[2023-06-27 22:28] LABS: ALANINE AMINOTRANSFERASE 31 U/L (12-78); ALBUMIN 3.9 G/DL (3.4-5.0); ALBUMIN/GLOBULIN RATIO 1.3 (1.1-1.5); ALKALINE PHOSPHATASE 46 IU/L (46-116); ANION GAP 16 (8-16); ASPARTATE AMINO TRANSFERASE 20 U/L (10-37); BLOOD UREA NITROGEN 20 MG/DL (7-18); BUN/CREATININE RATIO 25.6 (10.0-20.0); CHLORIDE 106 MMOL/L (99-107); CREATININE 0.78 MG/DL (0.40-0.90); GLUCOSE 144 MG/DL (70-104); POTASSIUM 3.7 MMOL/L (3.5-5.1); SODIUM 147 MMOL/L (135-145); TOTAL CARBON DIOXIDE 25.4 MMOL/L (24-32); eCRCL 59 ML/MIN; eGFR 78 ML/MIN
[2023-06-27 22:33] LABS: INR 0.9 INR
[2023-06-27 22:49] LABS: BILIRUBIN,TOTAL 0.2 MG/DL (0.1-1.0)
[2023-06-28] MEDS ORDERED: IBUP-1984 PO (03:34)
[2023-06-28] MEDS ORDERED: CYCL-1 PO (03:34)
[2023-06-28] MEDS ORDERED: ACET-2615 PO (03:34)
== END 2023-06-28 01:11 | disposition left against medical advice (07) ==
LOC: ER 20:47
DX: R07.89 Other chest pain (principal); M54.9 Dorsalgia, unspecified; Z53.21 Procedure and treatment not carried out due to patient leaving prior to being seen by health care provider
CPT/HCPCS: 36415; 71045; 71250; 80053; 85025; 85610; 85730; 99281

== ENCOUNTER 2023-06-28 02:10 | Emergency (ER) | payer BC, MEDICAID ==
[~2023-06-28] VITALS: Ht 149.9 cm; Wt 47.0 kg
[2023-06-28 02:23] VITALS: TEMP 98
[2023-06-28] MEDS: ketorolac trometh inj. 60 MG/2 ML VIAL IM ONE (03:28)
[2023-06-28] MEDS: HYDROcodone/acetaminophen 10/325mg tab PO ONE (03:28)
[2023-06-28] MEDS ORDERED: CYCL-1 PO (03:34)
[2023-06-28] MEDS ORDERED: IBUP-1984 PO (03:34)
[2023-06-28] MEDS ORDERED: ACET-2615 PO (03:34)
[2023-06-28 03:55] VITALS: BP 136/71; PULSE 78; RESP 18; O2SAT 97
== END 2023-06-28 03:56 | disposition home or self-care (01) ==
LOC: ER 02:11
DX: S22.31XA Fracture of one rib, right side, initial encounter for closed fracture (principal); X58.XXXA Exposure to other specified factors, initial encounter; Y93.89 Activity, other specified; Y92.89 Other specified places as the place of occurrence of the external cause; Y99.8 Other external cause status
CPT/HCPCS: 96372; 99283; J1885

== ENCOUNTER 2024-06-17 09:26 | Outpatient (CLI) | payer MEDICARE, MEDICAID ==
[~2024-06-17 09:26] MED LIST changes: +CYCL-1 PO
== END 2024-06-17 23:59 | disposition home or self-care (01) ==
LOC: RAD 09:26
PROVIDERS: ATTEND Nurse Practitioner Family
DX: M51.379 Other intervertebral disc degeneration, lumbosacral region without mention of lumbar back pain or lower extremity pain (principal); M51.34 Other intervertebral disc degeneration, thoracic region; M41.26 Other idiopathic scoliosis, lumbar region; M54.50 Low back pain, unspecified; M79.671 Pain in right foot; M79.672 Pain in left foot
CPT/HCPCS: 72070; 72110; 73630

== ENCOUNTER 2024-09-09 20:40 | Emergency (ER) | payer MEDICARE, MEDICAID ==
[~2024-09-09] VITALS: Ht 149.9 cm; Wt 42.2 kg
--- NOTE | 2024-09-09 22:06 | Physician Documentation ---
History of Present Illness ~ Chief Complaint: Back Pain Stated Complaint: BACK PAIN Time Seen by MD: 21:04 Primary Medical Doctor: NONE HPI Patient is seen today with complaints of low back pain acute on chronic. Patient states she had similar back pain about four years ago and got a Toradol shot and that helped her pain significantly. Patient denies any sciatica or numbness or tingling or weakness of her lower extremities. Patient denies any saddle anesthesia or changes in bowel or bladder habits. Patient has no other concern or complaint at this time. Medication Reconciliation Allergies: Coded Allergies: No Known Allergies (Unverified , 09/09/24) Scheduled Buspirone Hcl (Buspirone Hcl), 5 MG PO TID Cyclobenzaprine* (Cyclobenzaprine*), 1 TAB PO TID Melatonin (Melatonin), 1 TAB PO HS Nicotine 14 MG Patch* (Habitrol 14 MG Patch*), 1 PATCH TD DAILY Past Medical History Past Medical History: *RENAL/*, Kidney Stones, UTI, Chronic Pain, Chronic Back Pain Past Surgical History: orthopedic surgeries, other Alcohol Use: Occasionally Drug Use: marijuana, methamphetamine Lives with: Family Lives In: Home Occupation: unemployed Review of Systems Constitutional: Denies: chills, fever, weakness Eyes: Denies: pain, blurred vision ENT: Denies: ear pain, nose pain, throat pain, mouth pain Respiratory: Denies: cough, shortness of breath Cardiovascular: Denies: chest pain, palpitations Gastrointestinal: Denies: abdominal pain, nausea, vomiting Genitourinary: Denies: burning, dysuria Female Genitalia: Denies: vaginal discharge, pelvic pain Neurological: Denies: headache, dizziness Musculoskeletal: Denies: pain, swelling Integumentary: Denies: rash, lesions Allergic/Immunologic: Denies: hives, itching Hematologic/Lymphatic: Denies: no symptoms reported Psychiatric: Denies: depression, anxiety Physical Exam Physical Exam Vital Signs: Temperature: 97.6, Source: Temporal, Heart Rate: 85, Respiratory Rate: 15, BP: 119/66, Pulse Oximetry: 100, Weight: 42.200 Physical Exam General: Awake and Alert, no acute distress. HEENT: Conjunctiva pink, Sclera clear, Mucus Membranes moist. Neck: Supple without masses and tenderness. Resp: Unlabored. Lungs clear to auscultation bilaterally. Heart: Regular Rate and rhythm, normal S1 and S2 without murmur, rub or gallop. Musculoskeletal: Patient on exam does have decreased range of motion of the lumbar spine in all planes of motion. Patient has tenderness to palpation of the paraspinal muscles of the lumbar spine. I do not appreciate any tenderness to palpation of any spinous processes of the lumbar spine. Patient is neurovascularly intact distally. Motor function is intact distally. Extremities: No cyanosis,clubbing or edema. Skin: Warm and Dry. Progress Results/Orders Results/Orders Orders - VICENTE BANUELOS Ketorolac Trometh 30mg/Ml Vial (Toradol (09/09/24 21:58) Vital Signs 09/09/24 20:52 Temp 97.6 Pulse 85 Resp 15 B/P (MAP) 119/66 Pulse Ox 100 Medical Decision Making Findings Patient is seen today with complaints of low back pain acute on chronic. Patient states she had similar back pain about four years ago and got a Toradol shot and that helped her pain significantly. Patient denies any sciatica or numbness or tingling or weakness of her lower extremities. Patient denies any saddle anesthesia or changes in bowel or bladder habits. Patient has no other concern or complaint at this time. Toradol 30 mg IM given to patient in the ED today. Prescription of meloxicam 15 mg one tab by mouth once a day sent to patient pharmacy to be taken with food. Do not take any ibuprofen or naproxen or any other NSAID with this medication. Patient will follow up with primary care as soon as possible for referral to physical therapy. Return to ED with any worsening, concerning or changing symptoms. Departure Disposition: HOME / SELF CARE / HOMELESS Impression: Primary Impression: Low back pain Qualified Codes: M54.50 - Low back pain, unspecified Condition: Improved Discharge Instructions: Chronic Back Pain Additional Instructions: Toradol 30 mg IM given to patient in the ED today. Prescription of meloxicam 15 mg one tab by mouth once a day sent to patient pharmacy to be taken with food. Do not take any ibuprofen or naproxen or any other NSAID with this medication. Patient will follow up with primary care as soon as possible for referral to physical therapy. Return to ED with any worsening, concerning or changing symptoms. Referrals: NO PRIMARY CARE PROVIDER (PCP) Prescriptions Meloxicam (Meloxicam) 15 Mg Tablet 1 TAB PO DAILY for 30 Days, #30 TAB 0 Refills Prov: VICENTE BANUELOS 09/09/24 Signature Scribe Signature: No scribe Attestation: No scribe VICENTE BANUELOS September 09, 2024 22:06
[2024-09-09] MEDS ORDERED: MELO-102 PO (22:07)
[2024-09-09] MEDS: ketorolac trometh 30MG/ML vial 30 MG/ML VIAL IM STA (22:09)
[2024-09-09 22:16] VITALS: BP 125/73; PULSE 65; RESP 16; TEMP 97.6; O2SAT 99
== END 2024-09-09 22:17 | disposition home or self-care (01) ==
LOC: ER 20:41
DX: M54.50 Low back pain, unspecified (principal); F12.90 Cannabis use, unspecified, uncomplicated; F15.90 Other stimulant use, unspecified, uncomplicated; Z87.440 Personal history of urinary (tract) infections
CPT/HCPCS: 96372; 99283; J1885